=== PATIENT | female | born 1980 | race Caucasian/White ===

== ENCOUNTER → 2017-03-17 | Day surgery (SDC) | payer BC ==
[~2017-03-17] VITALS: Ht 149.9 cm; Wt 47.7 kg
[~2017-03-17] MED LIST: ADVIL200 MG PO; COLESTID1 GM PO; LEVSIN/SL0.125 MG PO; LEVSIN0.125 MG PO; TYLENOL EXTRA500 MG PO
== END | disposition disaster alternative care site (69) ==
LOC: GPOC 03-09 11:00 → GEND 09:45 → GPOC 11:00
PROC: 0DB98ZX Excision of Duodenum, Via Natural or Artificial Opening Endoscopic, Diagnostic (ICD-10-PCS; principal; 2017-03-17)
PROC: 0DB68ZX Excision of Stomach, Via Natural or Artificial Opening Endoscopic, Diagnostic (ICD-10-PCS; 2017-03-17)
PROC: 0DBE8ZX Excision of Large Intestine, Via Natural or Artificial Opening Endoscopic, Diagnostic (ICD-10-PCS; 2017-03-17)
PROC: 0DBB8ZX Excision of Ileum, Via Natural or Artificial Opening Endoscopic, Diagnostic (ICD-10-PCS; 2017-03-17)
DX: K20.9 Esophagitis, unspecified (principal); K57.30 Diverticulosis of large intestine without perforation or abscess without bleeding; F41.9 Anxiety disorder, unspecified; Z90.49 Acquired absence of other specified parts of digestive tract; Z98.890 Other specified postprocedural states; Z79.899 Other long term (current) drug therapy; Z88.8 Allergy status to other drugs, medicaments and biological substances; Z88.5 Allergy status to narcotic agent
CPT/HCPCS: J2001; J7030

== ENCOUNTER → 2017-03-27 | Outpatient (CLI) | payer BC | END | disposition disaster alternative care site (69) | LOC: GRAD 12:19 | DX: K63.3 Ulcer of intestine (principal); R19.7 Diarrhea, unspecified; R10.9 Unspecified abdominal pain | CPT/HCPCS: Q9967 ==